=== PATIENT | male | born 1965 | race Caucasian/White ===

== ENCOUNTER 2022-09-17 11:56 | Day surgery (SDC) | payer OTHER ==
[2022-09-13 15:27] LABS: BASOPHILS # (AUTO) 0.1 X10'3 (0-0.2); BASOPHILS % (AUTO) 0.8 % (0-1); EOSINOPHILS # (AUTO) 0.7 X10'3 (0-0.9); EOSINOPHILS % (AUTO) 9.6 % (0-6); LYMPHOCYTES # (AUTO) 0.7 X10'3 (1.1-4.8); LYMPHOCYTES % (AUTO) 9.2 % (21-51); MEAN CORPUSCULAR HEMOGLOBIN 30.6 PG (27.0-31.0); MEAN CORPUSCULAR HGB CONC 33.2 g/dL (33.0-36.5); MEAN CORPUSCULAR VOLUME 92.3 FL (78-98); MEAN PLATELET VOLUME 8.4 FL (7.4-10.4); MONOCYTES # (AUTO) 0.7 X10'3 (0-0.9); MONOCYTES % (AUTO) 8.9 % (2-12); NEUTROPHILS # (AUTO) 5.3 X10'3 (1.8-7.7); NEUTROPHILS % (AUTO) 71.5 % (42-75); PRE OP HEMATOCRIT 39.5 % (42.0-52.0); PRE OP HEMOGLOBIN 13.1 g/dL (14.0-17.9); PRE OP PLATELET COUNT 196 X10'3 (140-440); RED BLOOD COUNT 4.28 X10'6 (4.70-6.10); RED CELL DISTRIBUTION WIDTH 14.4 % (11.5-14.5)
[2022-09-13 15:36] LABS: ALBUMIN 3.3 G/DL (3.4-5.0); ALKALINE PHOSPHATASE 95 IU/L (46-116); BLOOD UREA NITROGEN 12 MG/DL (7-18); BUN/CREATININE RATIO 14.8 (5.4-32.0); CALCIUM 8.8 MG/DL (8.5-10.1); CHLORIDE 106 MMOL/L (99-107); CREATININE 0.81 MG/DL (0.60-1.10); PRE OP ALT 25 U/L (30-65); PRE OP ANION GAP 9 (8-16); PRE OP AST 18 U/L (10-37); PRE OP BILIRUB, TOTAL 0.5 MG/DL (0.0-1.0); PRE OP GLUCOSE 117 MG/DL (70-104); PRE OP SODIUM 142 MMOL/L (135-145); TOTAL CARBON DIOXIDE 27.4 MMOL/L (24-32); TOTAL PROTEIN 6.7 G/DL (6.4-8.2); eGFR > 90 ML/MIN
[2022-09-13 15:49] LABS: PRE OP POTASSIUM 3.9 MMOL/L (3.4-5.1)
[~2022-09-17] VITALS: Ht 188 cm; Wt 115.0 kg
[2022-09-17] VITALS (10 sets, daily range): BP systolic 116–177; BP diastolic 78–106
[~2022-09-17 11:56] MED LIST: AMLO5TAB PO; ATOR40TA71 PO; DABI150C PO; LISI10TA27 PO; RELU120T PO; SERT-434 PO; ceFAZolin inj. 2,000 MG in dextrose 5%-water 100 ML IV ONE; famotidine 20mg tablet PO ONE; ringers solution, lacted 1,000 ML IV SCH
[2022-09-17] MEDS ORDERED: LIDOcaine 1% 30ml preserv. free vial ONE (13:47)
[2022-09-17] MEDS ORDERED: BUPIVAcaine 0.5% inj/PF 30 ML ONE ×2 (13:47→14:30)
[2022-09-17] MEDS ORDERED: sevoflurane 250ml liquid IH ONE (13:55)
[2022-09-17] MEDS ORDERED: fentaNYL/PF 50MCG/1 ML 2ML syringe ONE (14:01)
[2022-09-17] MEDS ORDERED: midazolam 1 mg/ML 2ml injection ONE (14:02)
[2022-09-17] MEDS ORDERED: BUPIVAcaine 0.25% w/Epi /PF 30ml vial ONE (14:27)
[2022-09-17] MEDS ORDERED: BUPIVACAINE liposomal/PF 13.3 MG/ML vial IM ONE ×2 (14:27→14:30)
[2022-09-17] MEDS ORDERED: morphine 2 MG/ML inj. syringe IV PRN (14:35)
[2022-09-17] MEDS ORDERED: ondansetron/PF 4mg/2ml inj IV PRN (14:35)
[2022-09-17] MEDS ORDERED: meperidine/PF 25mg/ml syringe IV PRN ×3 (14:35)
[2022-09-17] MEDS ORDERED: proCHLORperazine 10 MG/2 ml inj IV PRN (14:35)
[2022-09-17] MEDS ORDERED: ringers solution, lacted 1,000 ML IV SCH (14:35)
[2022-09-17] MEDS ORDERED: morphine 4 MG/ML inj SYRINge IV PRN (14:35)
[2022-09-17] MEDS ORDERED: BUPIVAcaine 0.5% inj/PF 30 ml vial IJ ONE (14:36)
[2022-09-17] MEDS ORDERED: ondansetron/PF 4mg/2ml inj ONE (14:43)
[2022-09-17] MEDS ORDERED: glycopyrrolate 0.2mg/ml inj ONE (14:43)
[2022-09-17] MEDS ORDERED: LIDOcaine 2% (20mg/ml) 5ml vial ONE (14:43)
[2022-09-17] MEDS ORDERED: propofol inj 20 ML IV ONE (14:43)
[2022-09-17] MEDS ORDERED: dexamethasone sod phosphate 4mg/ml inj. ONE (14:43)
[2022-09-17] MEDS ORDERED: neostigmine methylsulfate 1 MG/ML 10ml vial ONE (14:43)
[2022-09-17] MEDS ORDERED: rocuronium 10mg/ml inj IV ONE (14:43)
[2022-09-17] MEDS ORDERED: acetaminophen 1,000mg/100ml IV 100 ML IV ONE (14:44)
[2022-09-17] MEDS ORDERED: meperidine/PF 25mg/ml syringe ONE (14:52)
[2022-09-17] MEDS ORDERED: oxyCODONE/APAP 5-325mg tablet PO PRN (15:00)
[2022-09-19] MEDS ORDERED: PRE5T PO (15:14)
[2022-09-19] MEDS ORDERED: CARV25TA2 PO (15:14)
[2022-09-19] MEDS ORDERED: OXYC-145 PO (15:14)
[2022-09-19] MEDS ORDERED: MEGE20TA3 PO (15:14)
[2022-09-19] MEDS ORDERED: DOCU100C40 PO (15:14)
[2022-09-19] MEDS ORDERED: OXYB5TAB16 PO (15:14)
[2022-09-19] MEDS ORDERED: ABIR250T2 PO (15:14)
== END 2022-09-17 16:41 | disposition home or self-care (01) ==
LOC: PAS 11:56
PROVIDERS: ATTEND Surgery
DX: K43.2 Incisional hernia without obstruction or gangrene (principal); I10 Essential (primary) hypertension; I25.10 Atherosclerotic heart disease of native coronary artery without angina pectoris; F32.9 Major depressive disorder, single episode, unspecified; F17.210 Nicotine dependence, cigarettes, uncomplicated; Z79.899 Other long term (current) drug therapy; Z90.79 Acquired absence of other genital organ(s); Z95.5 Presence of coronary angioplasty implant and graft; Z98.0 Intestinal bypass and anastomosis status; Z95.810 Presence of automatic (implantable) cardiac defibrillator; Z82.49 Family history of ischemic heart disease and other diseases of the circulatory system
CPT/HCPCS: 36415; 49591; 64488; 80053; 82948; 85025; 93005; C1781; C9290; J0131; J0690; J1100; J2175; J2250; J2405; J2704; J2710; J3010; J3490; J7030; J7060; J7120; S0020; Z7506; Z7508; Z7512; A4215; A4618